=== PATIENT | female | born 1965 | race Caucasian/White ===

== ENCOUNTER 2018-06-03 12:44 | Observation (INO) | payer MEDICAID, OTHER, SELFPAY ==
[~2018-06-03] VITALS: Ht 167.6 cm; Wt 92.9 kg
[2018-06-03] MEDS ORDERED: LISI-167 PO (13:13)
[2018-06-03 13:38] LABS: BASOPHILS # (AUTO) 0.01 x10^3/uL (0-0.1); BASOPHILS % (AUTO) 0 % (0-1); EOSINOPHILS # (AUTO) 0.13 x10^3/uL (0-0.4); EOSINOPHILS % (AUTO) 2 % (1-7); LYMPHOCYTES # (AUTO) 1.23 x10^3/uL (1-3.4); LYMPHOCYTES % (AUTO) 15 % (22-44); MD NO; MEAN CORPUSCULAR HEMOGLOBIN 30.9 pg (27.0-34.8); MEAN CORPUSCULAR HGB CONC 34.5 g/dL (32.4-35.8); MEAN CORPUSCULAR VOLUME 89.7 fL (80-100); MEAN PLATELET VOLUME 10.1 fL (7.4-10.4); MONOCYTES # (AUTO) 0.58 x10^3/uL (0.2-0.8); MONOCYTES % (AUTO) 7 % (2-9); NEUTROPHILS # (AUTO) 6.45 x10^3/uL (1.8-6.8); NEUTROPHILS % (AUTO) 77 % (42-75); PLATELET COUNT 301 x10^3/uL (130-400); RED BLOOD COUNT 4.64 x10^6/uL (3.82-5.3); RED CELL DISTRIBUTION WIDTH 12.9 % (9.6-15.2)
[2018-06-03 13:49] LABS: INTERNATIONAL NORMALIZED RATIO 1.01 (0.93-1.1); PROTHROMBIN TIME 10.4 Seconds (9.6-11.5)
[2018-06-03 13:51] LABS: ALANINE AMINOTRANSFERASE 22 U/L (12-78); ALBUMIN 3.5 g/dL (3.4-5.0); ANION GAP 7 mmol/L (5-15); CALCIUM 8.6 mg/dL (8.5-10.1); CHLORIDE 108 mmol/L (98-107); CREATININE 0.83 mg/dL (0.55-1.02)
[2018-06-03 13:55] LABS: ALKALINE PHOSPHATASE 146 U/L (45-117); BILIRUBIN,TOTAL 1.3 mg/dL (0.2-1.0); TOTAL PROTEIN 7.2 g/dL (6.4-8.2); TROPONIN I < 0.015 ng/mL (0.000-0.045)
[2018-06-03 15:47] VITALS: BP 122/73
[2018-06-03] MEDS ORDERED: BISACODYL 10 MG SUPP PR PRN (16:00)
[2018-06-03] MEDS ORDERED: OXYcodone/APAP 5/325MG TABLET PO PRN (16:00)
[2018-06-03] MEDS ORDERED: hydrALAzine 20 MG/ML, 1ML IVPush PRN (16:00)
[2018-06-03] MEDS ORDERED: ONDANSETRON ODT 4 MG PO PRN (16:00)
[2018-06-03] MEDS ORDERED: DOCUSATE 100 MG CAPSULE PO PRN (16:00)
[2018-06-03] MEDS ORDERED: ENALAPRILAT 1.25 MG/ML, 2ML IVPush PRN (16:00)
[2018-06-03] MEDS ORDERED: POLYETHYLENE GLYCOL 17 GM PACKET PO PRN (16:00)
[2018-06-03] MEDS ORDERED: ACETAMINOPHEN 325 MG TABLET PO PRN (16:00)
[2018-06-03] MEDS ORDERED: ONDANSETRON 2MG/ML, 2ML IVPush PRN (16:00)
[2018-06-03] MEDS ORDERED: NITROGLYCERIN 0.4 MG BOTTLE (25 TABS) SL PRN (16:00)
[2018-06-03] MEDS ORDERED: NICOTINE 21 MG/24 HR PATCH.TD24 TD SCH (16:00)
[2018-06-03] MEDS: PLEASE ENTER ALLERGIES MC SCH ×2 (17:16→23:29)
[2018-06-03] MEDS: ENOXAPARIN 30 MG/0.3 ML SQ SCH (17:21)
[2018-06-03 19:08] VITALS: BP 120/71
[2018-06-03 21:57] LABS: TROPONIN I < 0.015 ng/mL (0.000-0.045)
[2018-06-03] MEDS ORDERED: LISINOPRIL 10 MG TABLET PO SCH (23:30)
[2018-06-04 00:08] VITALS: BP 94/60
[2018-06-04 03:37] LABS: BASOPHILS # (AUTO) 0.05 x10^3/uL (0-0.1); BASOPHILS % (AUTO) 1 % (0-1); EOSINOPHILS # (AUTO) 0.23 x10^3/uL (0-0.4); EOSINOPHILS % (AUTO) 4 % (1-7); LYMPHOCYTES # (AUTO) 1.65 x10^3/uL (1-3.4); LYMPHOCYTES % (AUTO) 28 % (22-44); MD NO; MEAN CORPUSCULAR HEMOGLOBIN 30.5 pg (27.0-34.8); MEAN CORPUSCULAR HGB CONC 33.9 g/dL (32.4-35.8); MEAN PLATELET VOLUME 10.9 fL (7.4-10.4); MONOCYTES # (AUTO) 0.74 x10^3/uL (0.2-0.8); MONOCYTES % (AUTO) 12 % (2-9); NEUTROPHILS % (AUTO) 55 % (42-75); PLATELET COUNT 261 x10^3/uL (130-400); RED BLOOD COUNT 4.32 x10^6/uL (3.82-5.3); RED CELL DISTRIBUTION WIDTH 13.3 % (9.6-15.2)
[2018-06-04 03:47] LABS: ANION GAP 7 mmol/L (5-15); CALCIUM 8.3 mg/dL (8.5-10.1); CHLORIDE 107 mmol/L (98-107)
[2018-06-04 03:54] LABS: CHOL/HDL RATIO 3.7; CHOLESTEROL, TOTAL 131 mg/dL (140-239); CREATININE 0.96 mg/dL (0.55-1.02); HDL CHOL % 27 % (28-40); HDL CHOLESTEROL (DIRECT) 35 mg/dL (40-60); LDL CHOLESTEROL,CALCULATED 70 mg/dL (54-169); TRIGLYCERIDES 131 mg/dL (50-200); TROPONIN I < 0.015 ng/mL (0.000-0.045); VLDL CHOLESTEROL 26 mg/dL (0-25)
[2018-06-04] MEDS: ENOXAPARIN 30 MG/0.3 ML SQ SCH (05:11)
[2018-06-04 07:28] VITALS: BP 135/85
[2018-06-04] MEDS ORDERED: OMEPRAZOLE 20 MG CAPSULE.DR PO SCH (07:30)
[2018-06-04 07:46] VITALS: BP 120/81
[2018-06-04] MEDS ORDERED: REGADENOSON 0.4 MG/5 ML SYRINGE ONE (08:53)
[2018-06-04] MEDS ORDERED: LISINOPRIL 10 MG TABLET PO SCH (09:00)
[2018-06-04 13:51] VITALS: BP 126/79
[2018-06-04] MEDS ORDERED: ATORVASTATIN 40 MG TABLET PO SCH (21:00)
== END 2018-06-04 16:39 | disposition home or self-care (01) ==
LOC: ED 13:40 → INTOOBSV 14:11 → EDIP 14:11 → 5SO 15:38
PROVIDERS: ADMIT Family Medicine; ATTEND Family Medicine
DX: R07.2 Precordial pain (principal); R00.1 Bradycardia, unspecified; I10 Essential (primary) hypertension; J45.909 Unspecified asthma, uncomplicated; E78.5 Hyperlipidemia, unspecified; F17.210 Nicotine dependence, cigarettes, uncomplicated; Z88.5 Allergy status to narcotic agent; Z79.899 Other long term (current) drug therapy
CPT/HCPCS: 36415; 71045; 78452; 80048; 80053; 80061; 83880; 84443; 84484; 85025; 85610; 85730; 93005; 93017; 96372; 99285; A9502; C9898; G0378; J1650; J2785